=== PATIENT | female | born 1950 | race Hispanic/Latino ===

== ENCOUNTER 2017-07-19 09:09 | Observation (INO) | payer OTHER, MEDICARE ==
--- NOTE | 2017-07-19 09:42 | ED PDOC ---
Arrival/HPI - General Time Seen by Provider: 07/19/17 09:23 Historian: Patient - History of Present Illness Narrative History of Present Illness (Text): 07/19/17 09:30 Catrina Alexander is a 66 year old female, whose past medical history includes LA (with coronary stents) in 2012, who presents to the emergency department complaining of chest pain since 7AM this morning. Patient reports she woke up this morning and felt chest pain similar to previous LA. The pain lasted seconds to minutes and she also complaints of left arm pain which has currently resolved. Patient denies shortness of breath, dizziness, lightheadedness, nausea, vomiting, or other complaints. She is a former smoker that quit 15 years ago and does not drink. No other complaints were made. Additionally, patient notes taking Aspirin. PMD: Dr. Jo and Dr. Haas Time/Duration: Prior to Arrival Symptom Onset: Sudden Symptom Course: Resolved Activities at Onset: Rest Context: Home Associated Symptoms (Text): 07/19/17 10:36 Chest pain and left upper extremity pain similar to previous LA which began this morning and lasted on the order of seconds to minutes and has completely resolved at this time. Past Medical History - Provider Review Nursing Documentation Reviewed: Yes - Infectious Disease Hx of Infectious Diseases: None - Tetanus Immunization Tetanus Immunization: Unknown - Past Medical History Past Medical History: No Previous - Cardiac Other/Comment: stress test x3 with negetaive results - Neurological Hx Paralysis: No - Hematological/Oncological Hx Blood Transfusions: No Hx Blood Transfusion Reaction: No - Musculoskeletal/Rheumatological Hx Musculoskeletal Disorders: No Hx Falls: No - Psychiatric Hx Emotional Abuse: No Hx Physical Abuse: No Hx Substance Use: No - Surgical History Hx Coronary Stent: Yes (x3) Hx Hysterectomy: Yes (46 yrs old) Other/Comment: bilteral varicose vein sx - Anesthesia Hx Anesthesia Reactions: No Hx Malignant Hyperthermia: No - Suicidal Assessment Feels Threatened In Home Enviroment: No Family/Social History - Physician Review Nursing Documentation Reviewed: Yes Family/Social History: Unknown Family HX Smoking Status: Former Smoker Hx Alcohol Use: (rerely) Hx Substance Use: No Hx Substance Use Treatment: No Allergies/Home Meds Allergies/Adverse Reactions: Allergies No Known Allergies Allergy (Verified 05/27/13 10:28) Home Medications: Home Meds Medication Instructions Recorded Confirmed Aspirin [Aspir 81] 81 mg PO QPM 05/27/13 07/19/17 Review of Systems - Physician Review All systems were reviewed & negative as marked: Yes - Review of Systems Constitutional: absent: Fevers Eyes: absent: Vision Changes Respiratory: absent: SOB, Cough Cardiovascular: Chest Pain Gastrointestinal: absent: Abdominal Pain, Nausea, Vomiting Genitourinary Female: absent: Frequency Musculoskeletal: Other (left arm pain ). absent: Back Pain Neurological: absent: Headache, Dizziness Endocrine: absent: Diaphoresis Physical Exam Vital Signs Reviewed: Yes Vital Signs Temp Pulse Resp BP Pulse Ox 07/19/17 09:22 80 21 128/80 96 07/19/17 09:21 97.2 F L 81 23 130/82 95 Temperature: Afebrile Blood Pressure: Normal Pulse: Regular Respiratory Rate: Normal Appearance: Positive for: Well-Appearing, Non-Toxic, Comfortable, Other (obese) Pain Distress: None Mental Status: Positive for: Alert and Oriented X 3 - Systems Exam Head: Present: Atraumatic, Normocephalic Pupils: Present: PERRL Extroacular Muscles: Present: EOMI Conjunctiva: Present: Normal Mouth: Present: Moist Mucous Membranes Pharnyx: No: ERYTHEMA, EXUDATE, TONSILS ENLARGED Neck: Present: Normal Range of Motion Respiratory/Chest: Present: Clear to Auscultation, Good Air Exchange. No: Respiratory Distress, Accessory Muscle Use, Wheezes, Decreased Breath Sounds, Rales, Rhonchi, Tachypneic, Tender to Palpation Cardiovascular: Present: Regular Rate and Rhythm, Normal S1, S2. No: Murmurs Abdomen: Present: Normal Bowel Sounds. No: Tenderness, Distention, Peritoneal Signs, Rebound, Guarding Upper Extremity: Present: Normal Inspection. No: Cyanosis, Edema Lower Extremity: Present: Normal Inspection, NORMAL PULSES, Normal ROM, Neurovascularly Intact, Capillary Refill < 2 s. No: Edema, Cyanosis, Tenderness , Swelling, Erythema, Deformity Neurological: Present: GCS=15, CN II-XII Intact, Speech Normal, Motor Func Grossly Intact, Normal Cerebellar Funct, Memory Normal Skin: Present: Warm, Dry, Normal Color. No: Rashes Psychiatric: Present: Alert, Oriented x 3, Normal Insight, Normal Concentration Medical Decision Making ED Course and Treatment: 07/19/17 Impression: 66 year old female with PMH of LA with coronary stents. Reports having similar symptoms this morning. Physical exam is normal. Plan: -- EKG -- Labs -- Chest X-ray -- Reassess and disposition Progress Notes: 07/19/17 10:37 EKG shows normal sinus rhythm rate approximately [address] or T-wave changes 07/19/17 11:32 Discussed with who will place on telemetry observation and consult with cardiology. - Lab Interpretations Lab Results: 07/19/17 10:10 07/19/17 10:10 Lab Results 07/19/17 10:10: Sodium 141, Potassium 4.2, Chloride 103, Carbon Dioxide 26, Anion Gap 16, BUN 15, Creatinine 0.6 L, Est GFR ( Amer) > 60, Est GFR ( Non-Af Amer) > 60, Random Glucose 128 H, Calcium 9.0, Total Bilirubin 0.5, AST 23, ALT 37, Alkaline Phosphatase 90, Lactate Dehydrogenase 532, Total Creatine Kinase 51, Troponin I < 0.01, Total Protein 7.8, Albumin 4.3, Globulin 3.5, Albumin/Globulin Ratio 1.2 07/19/17 10:10: WBC 6.2, RBC 4.67, Hgb 14.6, Hct 44.3, MCV 94.9, MCH 31.3, MCHC 33.0, RDW 12.6, Plt Count 179, MPV 11.5 H, Gran % 76.8 H, Lymph % (Auto) 16.0 L , Dundy % (Auto) 5.1, Eos % (Auto) 1.9, Baso % (Auto) 0.2, Gran # 4.79, Lymph # 1.0 L, Dundy # 0.3, Eos # 0.1, Baso # 0.01 I have reviewed the lab results: Yes - RAD Interpretation Radiology Orders: 07/19/17 09:39 CHEST PORTABLE [RAD] Stat Automobile Tester: Radiologist - EKG Interpretation Interpreted by ED Physician: Yes Type: 12 lead EKG - Scribe Statement The provider has reviewed the documentation as recorded by the Kayleneibe Genoveva Lopez Provider Scribe Attestation: All medical record entries made by the Scribe were at my direction and personally dictated by me. I have reviewed the chart and agree that the record accurately reflects my personal performance of the history, physical exam, medical decision making, and the department course for this patient. I have also personally directed, reviewed, and agree with the discharge instructions and disposition. Disposition/Present on Arrival - Present on Arrival Any Indicators Present on Arrival: No History of DVT/PE: No History of Uncontrolled Diabetes: No Urinary Catheter: No History of Decub. Ulcer: No History Surgical Site Infection Following: None - Disposition Have Diagnosis and Disposition been Completed?: Yes Diagnosis: Chest pain Disposition: HOSPITALIZED Disposition Time: 11:32 Patient Plan: Observation, Telemetry Condition: GOOD Discharge Instructions (ExitCare): Chest Pain (ED) Referrals: Maty Marcial MD [Primary Care Provider] - Follow up with primary
[2017-07-19 09:43] VITALS: BMI 38.7
[2017-07-19 10:26] LABS: BASO # 0.01 K/mm3 (0.0-2.0); BASO % 0.2 % (0.0-3.0); EOS # 0.1 (0.0-0.7); EOS % 1.9 % (1.5-5.0); GRAN # 4.79 (1.4-6.5); GRAN % 76.8 % (50.0-68.0); HEMATOCRIT 44.3 % (36.0-48.0); MEAN CELL VOLUME 94.9 fl (80.0-105.0); MEAN CORPUSCULAR HEMOGLOBIN 31.3 pg (25.0-35.0); MEAN PLATELET VOLUME 11.5 fl (7.0-11.0); MONO # 0.3 (0.1-0.6); MONO % 5.1 % (1.0-6.0); RED CELL DISTRIBUTION WIDTH 12.6 % (11.5-14.5); WHITE BLOOD COUNT 6.2 10^3/ul (4.5-11.0)
[2017-07-19 10:35] LABS: ALB/GLOB RATIO 1.2 (1.1-1.8); ALKALINE PHOSPHATASE 90 U/L (38-126); ALT/SGPT 37 U/L (7-56); AST/SGOT 23 U/L (14-36); BILIRUBIN,TOTAL 0.5 mg/dL (0.2-1.3); BLOOD UREA NITROGEN 15 mg/dL (7-21); CARBON DIOXIDE 26 mmol/L (21-33); CHLORIDE 103 mmol/L (98-107); GFR AFRICAN-AMERICAN > 60; GLUCOSE,RANDOM 128 mg/dL (70-110); POTASSIUM 4.2 mmol/L (3.6-5.0); SODIUM 141 mmol/L (132-148); TOTAL PROTEIN 7.8 g/dL (5.8-8.3)
[2017-07-19 10:46] LABS: TROPONIN I < 0.01 ng/mL
--- NOTE | 2017-07-19 13:10 | RAD ---
HISTORY: cp COMPARISON: 05/24/2015 FINDINGS: LUNGS: No active pulmonary disease. PLEURA: No significant pleural effusion identified, no pneumothorax apparent. CARDIOVASCULAR: Normal. OSSEOUS STRUCTURES: No significant abnormalities. VISUALIZED UPPER ABDOMEN: Normal. OTHER FINDINGS: None. IMPRESSION: No active disease.
--- NOTE | 2017-07-19 13:47 | CARD ---
APPROVED REPORT EKG Measurement Heart [id number] <Conclusion> Normal sinus rhythm with 1st degree AVB
[2017-07-19 14:03] VITALS: RESP 18
[2017-07-19] MEDS ORDERED: Pneumococcal 23-Valent Vaccine IM ONE (16:32)
[2017-07-19] MEDS ORDERED: Influenza Vaccine 60 mcg/0.5 mL SYR (4YR UP) IM ONE (16:32)
[2017-07-20 06:14] VITALS: BP 130/70; TEMP 98.2; O2SAT 94
[2017-07-20 06:15] LABS: MEAN CELL VOLUME 95.9 fl (80.0-105.0); MEAN CORPUSCULAR HEMOGLOBIN 30.4 pg (25.0-35.0); MEAN CORPUSCULAR HGB CONC 31.7 g/dl (31.0-37.0); MEAN PLATELET VOLUME 11.8 fl (7.0-11.0); RED CELL DISTRIBUTION WIDTH 12.8 % (11.5-14.5); WHITE BLOOD COUNT 6.3 10^3/ul (4.5-11.0)
[2017-07-20 06:45] LABS: ALB/GLOB RATIO 1.1 (1.1-1.8); ALKALINE PHOSPHATASE 77 U/L (38-126); ALT/SGPT 36 U/L (7-56); AST/SGOT 23 U/L (14-36); BILIRUBIN,TOTAL 0.7 mg/dL (0.2-1.3); BLOOD UREA NITROGEN 16 mg/dL (7-21); CALCIUM 9.1 mg/dL (8.4-10.5); CARBON DIOXIDE 29 mmol/L (21-33); CHLORIDE 104 mmol/L (98-107); GFR AFRICAN-AMERICAN > 60; GLUCOSE,RANDOM 99 mg/dL (70-110); SODIUM 140 mmol/L (132-148)
[2017-07-20 06:59] LABS: CHOLESTEROL 163 mg/dL (130-200)
[2017-07-20] MEDS ORDERED: Metoprolol Succinate 25 mg XL Tab PO SCH (08:00)
[2017-07-20 10:03] VITALS: PULSE 78
--- NOTE | 2017-07-20 11:01 | CON ---
DATE: 07/20/2017 INDICATIONS: Chest pain. HISTORY OF PRESENT ILLNESS: This is a 66-year-old woman known to me with a history of coronary artery disease, remote myocardial infarction, and coronary stents in 2012, who came in to the emergency room yesterday morning with short history of chest pain, which was present when she woke from sleep, it was a mid chest and left arm discomfort. It resolved after a short period of 10 to 15 minutes. She came to the emergency room and was admitted. Her EKG was benign. Two troponins are negative. Today, she is on the telemetry floor without chest pain, this was the first chest pain in a longtime. She has not noted shortness of breath, orthopnea, PND, syncope, pre-syncope, lightheadedness, dizziness, vertigo, palpitations, edema or claudication. There is no fever, chills, cough, sputum production, hemoptysis, abdominal pain, nausea, vomiting, diarrhea, constipation or melena. PAST MEDICAL HISTORY: Notable for coronary artery disease with myocardial infarction in 2012. She had coronary intervention with stents placed in the LAD, circumflex artery, and right coronary artery at that time. There is a history of hysterectomy. There was no history of rheumatic fever, congestive heart failure, stroke, TIA, diabetes or gout. MEDICATIONS: At the time of admission include aspirin, Altace, Bystolic, and Lipitor. ALLERGIES: THERE ARE NO MEDICATION ALLERGIES. SOCIAL HISTORY: She lives at home, she is ambulatory, she does not smoke cigarettes, she does not drink alcohol significantly. FAMILY HISTORY: Noncontributory. REVIEW OF SYSTEMS: A 10-point review of systems otherwise unremarkable, except as noted above. PHYSICAL EXAMINATION: GENERAL: She is a well-developed woman, lying in bed, on telemetry, in no acute distress. VITAL SIGNS: Unremarkable. She is in sinus rhythm at 65 beats per minute. She is afebrile, blood pressure 130/70, respirations 19, and O2 sat 98% on room air. HEENT: Reveals no neck vein distention, thyromegaly or carotid bruit. Mucous membranes moist. Conjunctivae pink. NECK: Supple. LUNGS: Lungs jensen clear. HEART: Revealed normal first and second heart sounds without murmur, gallop, rub or click. ABDOMEN: Soft. Bowel sounds are present. No mass, organomegaly, tenderness, rebound, guarding, CVA tenderness or palpable abdominal aortic aneurysm. EXTREMITIES: Revealed no cyanosis, clubbing or edema. NEUROLOGIC: She is awake, alert, and oriented. PSYCHIATRIC: Normal as to mood and affect. SKIN: Warm and dry. No rash or cellulitis. LABORATORY DATA AND IMAGING: EKG demonstrates regular sinus rhythm with first-degree heart block. No change from her prior EKG. Portable chest x-ray reveals no active disease. CBC is unremarkable. Electrolytes, BUN and creatinine, blood sugars unremarkable. LFTs unremarkable. CK 51. Troponin negative x2 sets. Total cholesterol 163, triglycerides 120, LDL 94, and HDL 41. ASSESSMENT: Catrina Alexander is a 66-year-old woman with known coronary artery disease, status post myocardial infarction with multivessel coronary intervention in 2012, recently developed an episode of chest pain, somewhat suggestive of her prior ischemic chest pain, the symptoms resolved in just a few minutes. There is no evidence of acute myocardial infarction. There is no arrhythmia while on telemetry. At this time, I will make arrangements for a nuclear stress test, this can be done on an outpatient basis in the near future. In the meantime, I would continue aspirin, Bystolic, Altace, and Lipitor. If there are no further episodes of chest pain this morning, I would anticipate an early discharge and we will make arrangements for a prompt outpatient nuclear stress test. She will call us if any symptoms recur. If symptoms are recurring or if the stress test is abnormal, we will consider cardiac catheterization due to find her current coronary anatomy. Yoseph Retana MD
--- NOTE | 2017-07-20 12:08 | CARD ---
APPROVED REPORT EKG Measurement Heart [id number] <Conclusion> Normal sinus rhythmwith 1st degree AVB Low voltage QRS Nonspecific T wave abnormality No change
--- NOTE | 2017-07-20 15:56 | HP ---
CHIEF COMPLAINT: Substernal chest pain. HISTORY OF PRESENT ILLNESS: A 66-year-old female with history of coronary artery disease and history of myocardial infarction and stent and hypertension and hyperlipidemia who presented to emergency room with complaints of sudden onset of sharp substernal chest pain, she developed at home when woke up from sleep. She states that her pain lasted few minutes and resolved on its own. The patient denies any nausea, vomiting, radiation of the pain, shortness of breath or diaphoresis. The patient has dry cough due to upper respiratory infection symptom for the past week, but she denied any fever. PAST MEDICAL HISTORY: Coronary artery disease, acute myocardial infarction in 2012 status post cardiac catheterization and stent, history of hyperlipidemia, history of hypertension, obesity, and hyperactive airway. ALLERGIES: THE PATIENT HAS NO KNOW ALLERGIES. CURRENT MEDICATIONS: Ramipril 5 mg daily, Bystolic 5 mg daily, Lipitor 40 mg daily, and aspirin 81 mg daily. FAMILY HISTORY: Strong history of hypertension and coronary artery disease. SOCIAL HISTORY: The patient denies smoking, alcohol or drug use. The patient is retired. The patient is and lives with and she is independent of activities of daily living. REVIEW OF SYSTEMS: The patient denies any fever,weight loss, fatigue or weakness. She denies any blurry vision, eye pain or discharge. She denies any sore throat or nasal congestion. She denies any neck pain or neck mass. She denies any shortness of breath, but has occasional dry cough and wheezing. She any diaphoresis, heart palpitation, shortness of breath, complains of sharp pain in substernal area. The patient denies any abdominal pain, heartburn,nausea, vomiting,constipation or diarrhea. The patient denies any dysuria, hematuria or flank pain. She denies any neurological symptoms as blurry vision, weakness, paraesthesia or tremor. The patient complains of anxiety and sleep problems. Denies any depression or suicidal thoughts. PHYSICAL EXAMINATION: VITAL SIGNS: Stable. Her temperature is 98.2, pulse is 62, blood pressure is 130/70, respiratory rate is 18, and her oxygen saturation is 95% on room air. GENERAL: She is comfortable. Alert, awake, and oriented. HEENT: Head is normocephalic and atraumatic. Pupils are reactive to light. No jaundice. Oral mucosa is moist. No throat lesions. NECK: Supple. No neck masses. No JVD. No thyromegaly. LUNGS: Clear to auscultation. HEART: With regular rhythm and rate. ABDOMEN: Soft, nontender, and nondistended. EXTREMITIES: With full range of motion. No edema, cyanosis or clubbing. NEUROLOGIC: Normal. DIAGNOSTIC TESTS: Showed normal CBC, normal chemistry with random glucose was 128. Her troponin was negative on two occasions. Cholesterol was 163 and LDL 94. EKG showed normal sinus rhythm with first degree LV block, no ST-T changes. Chest x-ray showed no acute pathology. ASSESSMENT AND PLAN: A 66-year-old female, with history of coronary artery disease, hyperlipidemia, and hypertension, presented with atypical substernal chest pain. The patient was admitted to telemetry for observation. Also the patient was treated with aspirin, continued with ramipril, atorvastatin and beta-matt. Maty Marcial MD MTDD
--- NOTE | 2017-07-21 08:21 | DS ---
HISTORY OF PRESENT ILLNESS: The patient was admitted for sharp substernal chest pain. The patient was on observation in telemetry. She is feeling much better. She denies any chest pain, shortness of breath. PHYSICAL EXAMINATION: VITAL SIGNS: Vitals this morning stable with temperature 98.2; pulse 65, regular; blood pressure 130/70; respiratory rate 18; oxygen saturation 94% on room air. GENERAL: She is comfortable, alert, awake, oriented. HEENT: Head is normocephalic, atraumatic. Oral mucosa is moist. NECK: Supple. LUNGS: Clear to auscultation. HEART: With regular rhythm and rate. ABDOMEN: Soft, nontender, nondistended. EXTREMITIES: With no edema. LABORATORY DATA: Her diagnostic tests showed 3 series of troponin level normal. A repeat EKG this morning showed normal sinus rhythm. Some low-voltage QRS, first-degree AV block. ASSESSMENT: 1. A 66-year-old female, admitted for atypical substernal chest pain, noncardiac etiology. 2. History of coronary artery disease and presently stable. 3. Hypertension. 4. Hyperlipidemia. 5. Obesity. PLAN OF TREATMENT: Case was discussed with the product advisor. The patient is stable to be discharged home from cardiological point of view. The patient was advised to follow up with Cardiology as outpatient. The patient will be maintained on chronic medications, atorvastatin 40 mg daily, Bystolic 5 mg daily, Altace 5 mg daily and aspirin 81 mg daily. She was advised to follow up with primary care doctor in 1 week. Maty Marcial MD
== END 2017-07-20 10:17 | disposition home or self-care (01) ==
LOC: ED 09:09 → ERH 11:30 → 2RSO 16:09
PROVIDERS: ADMIT Family Medicine; ATTEND Family Medicine
DX: R07.9 Chest pain, unspecified (principal); E78.5 Hyperlipidemia, unspecified; I10 Essential (primary) hypertension; I25.10 Atherosclerotic heart disease of native coronary artery without angina pectoris; I25.2 Old myocardial infarction; Z79.82 Long term (current) use of aspirin; E66.9 Obesity, unspecified; Z87.891 Personal history of nicotine dependence; Z90.710 Acquired absence of both cervix and uterus; Z95.5 Presence of coronary angioplasty implant and graft; Z68.39 Body mass index [BMI] 39.0-39.9, adult
CPT/HCPCS: 36415; 71010; 80053; 80061; 82550; 83036; 83615; 84484; 85025; 85027; 93005; 99285; G0378